=== PATIENT | female | born 1980 | race Caucasian/White ===

== ENCOUNTER 2017-10-23 16:38 | Emergency (ER) | payer OTHER ==
[~2017-10-23] VITALS: Ht 162.6 cm; Wt 75.0 kg
[2017-10-23 16:44] VITALS: BP 149/79; PULSE 81; RESP 18; TEMP 97.6; O2SAT 100
[2017-10-23] MEDS ORDERED: CLINDAMYCIN PHOS 600 MG/4 ML VIAL IM ONE (17:00)
[2017-10-23] MEDS ORDERED: KETOROLAC TROMETHAMINE 60 MG/2 ML (IM) VIAL IM ONE (17:00)
[2017-10-23] MEDS ORDERED: IBUP1TAB7 PO (17:01)
[2017-10-23] MEDS ORDERED: PENI500T PO (17:01)
--- NOTE | 2017-10-23 17:04 | PD ---
HPI Chief Complaint: Oral / Dental Pain or Problem Time Seen by Provider: 16:56 Travel History International Travel<30 days: No Contact w/Intl Traveler<30days: No Traveled to known affect area: No History of Present Illness HPI 37-year-old female visiting from [facility], presents emergency department with pain and swelling to the left upper jaw over the past 24 hours. Patient states she broke her #14 tooth about 1 year ago but had no problems until yesterday. She denies fever or chills but has increased swelling and pain into the upper left cheek. Pain is currently 8 out of 10. Patient is no difficulty swallowing. She has no known drug allergies. PFSH Past Medical History ?: Not LMP: 10/11/17 Social History Alcohol Use: Yes Tobacco Use: Yes Substance Use: Yes Allergies-Medications (Allergen,Severity, Reaction): Coded Allergies: No Known Allergies (Unverified , 10/23/17) Reported Meds & Prescriptions Reported Meds & Active Scripts Active Ibuprofen 800 Mg Tab 800 Mg PO Q8H PRN Penicillin V Potassium 500 Mg Tab 500 Mg PO Q6H Review of Systems Except as stated in HPI: all other systems reviewed are Neg General / Constitutional: No: Fever Eyes: No: Visual changes HENT: Positive: Dental Difficulties, No: Headaches, Vertigo, Lightheadedness, Sore Throat, Rhinitis, Rhinorrhea, Congestion, Nosebleed, Neck Stiffness, Neck Pain, Masses, Gingival Bleeding, Earache Cardiovascular: No: Chest Pain or Discomfort Respiratory: No: Shortness of Breath Gastrointestinal: No: Abdominal Pain Genitourinary: No: Dysuria Musculoskeletal: No: Pain Skin: No Rash Neurologic: No: Weakness Psychiatric: No: Depression Endocrine: No: Polydipsia Hematologic/Lymphatic: No: Easy Bruising Physical Exam Narrative GENERAL: Patient appears in mild distress. SKIN: Warm and dry. Normal color. Normal turgor HEAD: Atraumatic. Normocephalic. Patient has swelling over the left maxillary cheek consistent with history. EYES: Pupils equal and round. No scleral icterus. No injection or drainage. ENT: No nasal bleeding or discharge. Mucous membranes pink and moist. Pharynx is clear. Airways patent. TMs are normal bilaterally. Patient has obvious broken #14 tooth. NECK: Trachea midline. Supple without significant lymphadenopathy per CARDIOVASCULAR: Regular rate and rhythm. RESPIRATORY: No accessory muscle use. Clear to auscultation. Breath sounds equal bilaterally. MUSCULOSKELETAL: Extremities without clubbing, cyanosis, or edema. No obvious deformities. NEUROLOGICAL: Awake and alert. No obvious cranial nerve deficits. Motor grossly within normal limits. Five out of 5 muscle strength in the arms and legs. Normal speech. PSYCHIATRIC: Appropriate mood and affect; insight and judgment normal. Data Data Last Documented VS Vital Signs Date Time Temp Pulse Resp B/P (MAP) Pulse Ox O2 Delivery O2 Flow Rate FiO2 10/23/17 16:44 97.6 81 18 149/79 (102) 100 Orders Orders Ketorolac Inj (Toradol Inj) (10/23/17 17:00) Clindamycin Inj (Cleocin Inj) (10/23/17 17:00) [facility] Medical Decision Making Medical Screen Exam Complete: Yes Emergency Medical Condition: Yes Differential Diagnosis Broken tooth. Dental pain. Dental abscess. Narrative Course Patient is given 60 mg Toradol IM. Patient is given 600 mg clindamycin IM. Patient is going to continue on Pen-Vee K 500 mg 4 times daily 10 days. She is also given ibuprofen 800 mg 3 times daily with food #30. Patient can take extra strength Tylenol as well. Patient is to follow-up with dental services as soon as possible. Patient can return if symptoms worsen as needed. Diagnosis Primary Impression: Dental abscess Patient Instructions: General Instructions Additional Instructions: Patient is given 60 mg Toradol IM. Patient is given 600 mg clindamycin IM. Patient is going to continue on Pen-Vee K 500 mg 4 times daily 10 days. She is also given ibuprofen 800 mg 3 times daily with food #30. Patient can take extra strength Tylenol as well. Patient is to follow-up with dental services as soon as possible. Patient can return if symptoms worsen as needed. Scripts Ibuprofen (Ibuprofen) 800 Mg Tab 800 MG PO Q8H Y for Pain/Inflammation, #30 TAB 0 Refills Prov: Verna Workman MD 10/23/17 Penicillin V Potassium (Penicillin V Potassium) 500 Mg Tab 500 MG PO Q6H for Infection, #40 TAB 0 Refills Prov: Verna Workman MD 10/23/17 Disposition: 01 DISCHARGE HOME Condition: Stable Bennett Palafox October 23, 2017 17:04
== END 2017-10-23 17:34 | disposition home or self-care (01) ==
LOC: NEPD 16:38
DX: K04.7 Periapical abscess without sinus (principal); Z72.0 Tobacco use
CPT/HCPCS: 96372; 99283; J1885